=== PATIENT | male | born 1945 | race Caucasian/White ===

== ENCOUNTER 2019-09-03 16:02 | Emergency (ER) | payer OTHER ==
[~2019-09-03 16:02] MED LIST: ALBU1.25 NEB; AMIODARONE 150 MG/3 ML VIAL ONE; CLOP75TA57 PO; EPINEPHrine 1 MG/ML VIAL ONE; GLIP10TA13 PO; LORA0.5T PO; METF10007 PO; NEFA50TA PO; NITR0.4T22 SL; PRAV80TA2 PO
--- NOTE | 2019-09-03 16:51 | PHYS DOC ---
General Adult EDM: Chief Complaint: CPR/FULL ARREST HPI: HPI: Patient is a 74-year-old male who presents via EMS in cardiac arrest. According to the family the patient had been feeling relatively well throughout the day today and was actually looking forward to [facility] for dinner. He went into the restroom collapsed and became unresponsive. EMS was called immediately and on their arrival they noted that he was pulseless and apneic. They immediately started ACLS protocol including chest compressions, they placed an intraosseous IV and gave 1 round of epinephrine. They never did regain a pulse. Patient was down for approximately 30 minutes at the time of arrival here. [] Review of Systems: Review of Systems: Review of systems is unobtainable secondary to critical nature of the patient's illness Heart Score: Risk Factors: Risk Factors: DM, Current or recent (<one month) smoker, HTN, HLP, family history of CAD, obesity. Risk Scores: Score 0 - 3: 2.5% MACE over next 6 weeks - Discharge Home Score 4 - 6: 20.3% MACE over next 6 weeks - Admit for Clinical Observation Score 7 - 10: 72.7% MACE over next 6 weeks - Early Invasive Strategies Allergies: Allergies: Allergies Coded Allergies Type Severity Reaction Last Updated Verified lidocaine Allergy Severe 01/14/15 Yes Physical Exam: PE: Constitutional: Patient in cardiac arrest with active CPR in progress. [] HENT: Normocephalic, atraumatic [] Eyes: Pupils fixed and dilated [] Neck: Normal range of motion, no tenderness, supple, no stridor. [] Cardiovascular: Good femoral pulse with compressions [] Lungs & Thorax: Bilateral breath sounds auscultated with bag valve mask [] Abdomen: Bowel sounds normal, soft, no tenderness, no masses, no pulsatile masses. [] Skin: Cool and mottled [] Extremities: Intraosseous needle placed in the left tibia [] EKG: EKG: [] Radiology/Procedures: Radiology/Procedures: [] Course & Med Decision Making: Course & Med Decision Making Pertinent Labs and Imaging studies reviewed. (See chart for details) [ED course: Valuation reveals a 74-year-old male in cardiac arrest. ACLS protocol was continued here for approximately 15 minutes. Please see the nurses CODE BLUE sheet for accurate details. The patient was given 3 rounds of epinephrine and 300 mg of amiodarone. He was also noted to be in V. fib twice and cardioversion was attempted x2. Ultimately we were unable to get a return of spontaneous circulation and the patient passed. I did speak with the family in the consult room to let them know the outcome.] Julio Cesar Disclaimer: Dragpamela Disclaimer: This electronic medical record was generated, in whole or in part, using a voice recognition dictation system. Departure Departure Impression: Primary Impression: Cardiac arrest Disposition: 20 Condition: GRAVE Referrals: SABRINA ALARCON MD (PCP) Justicifation of Admission Dx: Justifications for Admission: Justification of Admission Dx: No DANTE ESPINOZA DO Sep 03, 2019 16:50
== END 2019-09-03 18:10 | disposition expired ==
LOC: ER 16:02
DX: I46.9 Cardiac arrest, cause unspecified (principal); Z88.4 Allergy status to anesthetic agent
CPT/HCPCS: 92950; 92960; 99285; J0171; J0282